=== PATIENT | female | born 1990 | race American Indian/Alaskan Native ===

== ENCOUNTER 2018-03-17 18:10 | Emergency (ER) | payer MEDICAID ==
[2018-03-17 18:46] LABS: Basophils % (Auto) 0.5 % (0.0-1.8); Eosinophils # (Auto) 0.1 K/mm3 (0.0-0.4); Eosinophils % (Auto) 1.1 % (0.0-4.3); Hematocrit 35.9 % (30.3-42.9); Hemoglobin 12.3 gm/dl (10.1-14.3); Lymphocytes # (Auto) 2.5 K/mm3 (1.2-5.4); Lymphocytes % (Auto) 32.5 % (13.4-35.0); Mean Corpuscular HGB Conc 34 % (30-34); Mean Corpuscular Hemoglobin 28 pg (28-32); Mean Corpuscular Volume 81 fl (79-97); Monocytes # (Auto) 0.7 K/mm3 (0.0-0.8); Monocytes % (Auto) 8.7 % (0.0-7.3); Platelet Count 254 K/mm3 (140-440); Red Blood Count 4.44 M/mm3 (3.65-5.03); Red Cell Distribution Width 14.1 % (13.2-15.2)
[2018-03-17 20:15] VITALS: BP 112/74
--- NOTE | 2018-03-17 20:21 | Ultrasound Report ---
FINAL REPORT EXAM: US OB < = 14 WEEKS FETUS HISTORY: OB confirmed preg, vaginal bleeding COMPARISON: None available. TECHNIQUE: Several real-time grayscale and color Doppler images were obtained. Transabdominal and transvaginal exam. FINDINGS: Endometrial stripe is thickened and heterogeneous. Findings are concerning for portion of progress. Retained products not excluded on this study. Endometrial stripe measures up to 2.8 centimeters. Uterus measures 11.0 x 5.2 x 8.0 centimeters. At the anterior body of the uterus is exophytic fibroid measuring 2.0 by 1.5 by 1.0 centimeters. There is a 2nd fibroid at the fundus measuring 2.0 x 1.5 x 1.5 centimeters. Right ovary measures 3.3 x 1.4 x 1.4 centimeters. The left ovary measures 3.9 x 1.7 x 1.9 centimeters. Small follicles are present within the ovaries. There is vascular flow to the ovaries. No adnexal masses or free fluid. IMPRESSION: Thickened heterogeneous endometrial stripe concerning for portion progress. Retained products not excluded on this study. No adnexal masses are demonstrated to suggest ectopic at this time. Correlation with serial beta HCGs and followup exam is suggested. Normal physiologic changes of the ovaries. Two fibroids are identified.
[2018-03-17] MEDS ORDERED: TYLENOL PO ONE (20:23)
--- NOTE | 2018-03-17 21:06 | Emergency Department Report ---
ED HPI - General Chief complaint: Vaginal Bleeding Stated complaint: POSS MISCARRAIGE Time Seen by Provider: 03/17/18 20:08 Source: patient Mode of arrival: Ambulatory Limitations: No Limitations - History of Present Illness Initial comments: 27-year-old female currently with her third with history of one living child and one miscarriage presents to the hospital complaining of vaginal bleeding that started 1.5 hours prior to arrival pain was initially heavy and patient passed a large clot but now it is only spotting. Patient complains of 5/10 suprapubic abdominal cramping worse to palpation. Patient had a positive test 2 weeks ago at her testing center but has not yet initiated care. - Related Data Allergies Allergy/AdvReac Type Severity Reaction Status Date / Time No Known Allergies Allergy Unverified 03/17/18 18:14 ED Review of Systems ROS: Stated complaint: POSS MISCARRAIGE Other details as noted in HPI Comment: All other systems reviewed and negative ED Past Medical Hx - Past Medical History Previous Medical History?: No - Surgical History Past Surgical History?: No - Social History Smoking Status: Never Smoker Substance Use Type: None ED Physical Exam - General Limitations: No Limitations - Other Other exam information: General: No limitations, patient is alert in no acute distress Head exam: Atraumatic, normocephalic Eyes exam: Normal appearance ENT: Moist mucous membrane Neck exam: Normal inspection Respiratory exam: Clear to auscultation bilateral, no wheezes, rales, crackles Cardiovascular: Normal rate and rhythm, normal heart sounds Abdomen: Soft, nondistended, mild suprapubic discomfort, with normal bowel sounds, no rebound, or guarding Extremity: Full range of motion normal inspection no deformity Back: Normal Inspection, full range of motion, no tenderness Neurologic: Alert, oriented x3, cranial nerves intact, no motor or sensory deficit Psychiatric: normal affect, normal mood Skin: Warm, dry, intact ED Course Vital Signs 03/17/18 03/17/18 03/17/18 18:14 19:56 20:00 Temperature 98.9 F Pulse Rate 87 Respiratory 18 Rate Blood Pressure 146/68 112/74 O2 Sat by Pulse 97 91 98 Oximetry 03/17/18 21:54 Temperature Pulse Rate Respiratory 20 Rate Blood Pressure O2 Sat by Pulse Oximetry - Reevaluation(s) Reevaluation #1: 06/24/18 21:06 Tylenol for pain - Consultations Consultation #1: 03/17/18 21:09 case d/w Dr Marquez, agrees without outpatient follow for repeat Quant ED Medical Decision Making - Lab Data Result diagrams: 03/17/18 18:22 Lab Results 03/17/18 03/17/18 03/17/18 Range/Units 18:22 18:22 18:22 WBC 7.6 (4.5-11.0) K/mm3 RBC 4.44 (3.65-5.03) M/mm3 Hgb 12.3 (10.1-14.3) gm/dl Hct 35.9 (30.3-42.9) % MCV 81 (79-97) fl MCH 28 (28-32) pg MCHC 34 (30-34) % RDW 14.1 (13.2-15.2) % Plt Count 254 (140-440) K/mm3 Lymph % (Auto) 32.5 (13.4-35.0) % [place] % (Auto) 8.7 H (0.0-7.3) % Eos % (Auto) 1.1 (0.0-4.3) % Baso % (Auto) 0.5 (0.0-1.8) % Lymph # 2.5 (1.2-5.4) K/mm3 [place] # 0.7 (0.0-0.8) K/mm3 Eos # 0.1 (0.0-0.4) K/mm3 Baso # 0.0 (0.0-0.1) K/mm3 Seg Neutrophils % 57.2 (40.0-70.0) % Seg Neutrophils # 4.4 (1.8-7.7) K/mm3 HCG, Quant 95.93 H (0-4) mIU/mL Blood Type O POSITIVE Antibody Screen Negative - Radiology Data Radiology results: report reviewed FINAL REPORT EXAM: US OB TRANSVAGINAL HISTORY: OB confirmed preg, vaginal bleeding COMPARISON: None available. TECHNIQUE: Several real-time grayscale and color Doppler images were obtained. Transabdominal and transvaginal exam. FINDINGS: Endometrial stripe is thickened and heterogeneous. Findings are concerning for portion of progress. Retained products not excluded on this study. Endometrial stripe measures up to 2.8 centimeters. Uterus measures 11.0 x 5.2 x 8.0 centimeters. At the anterior body of the uterus is exophytic fibroid measuring 2.0 by 1.5 by 1.0 centimeters. There is a 2nd fibroid at the fundus measuring 2.0 x 1.5 x 1.5 centimeters. Right ovary measures 3.3 x 1.4 x 1.4 centimeters. The left ovary measures 3.9 x 1.7 x 1.9 centimeters. Small follicles are present within the ovaries. There is vascular flow to the ovaries. No adnexal masses or free fluid. IMPRESSION: Thickened heterogeneous endometrial stripe concerning for portion progress. Retained products not excluded on this study. No adnexal masses are demonstrated to suggest ectopic at this time. Correlation with serial beta HCGs and followup exam is suggested. Normal physiologic changes of the ovaries. Two fibroids are identified. - Differential Diagnosis miscarriage, ectopic, threatened Critical Care Time: No Critical care attestation.: If time is entered above; I have spent that time in minutes in the direct care of this critically ill patient, excluding procedure time. ED Disposition Clinical Impression: Threatened Disposition: DC- TO HOME OR SELFCARE Is pt being admited?: No Does the pt Need Aspirin: No Condition: Stable Instructions: Threatened Miscarriage (ED) Additional Instructions: At this time the ultrasound does not reveal any and your beta hCG number is very low. This means either your is too early to be seen or you're actively having a miscarriage. You need to either return here or follow-up with the [facility] doctor in 2 days for repeat BHCG blood testing to see if your hormone level is increasing or decreasing. Please return if symptoms worsen as per your discharge instructions. Take Tylenol as needed for pain Referrals: MADISYN MARQUEZ MD [Staff Physician] - 2-3 Days (senior vice president doctor ) Time of Disposition: 22:12
== END 2018-03-17 22:49 | disposition home or self-care (01) ==
LOC: ED 18:10
DX: O20.0 Threatened abortion (principal); Z3A.01 Less than 8 weeks gestation of pregnancy
CPT/HCPCS: 36415; 76801; 76817; 84702; 85025; 86850; 86900; 86901